=== PATIENT | male | born 1965 | race African-American/Black ===

== ENCOUNTER 2021-06-10 08:26 | Emergency (ER) | payer OTHER ==
[~2021-06-10] VITALS: Ht 208.3 cm; Wt 114.0 kg
[2021-06-10] MEDS ORDERED: LOSARTAN POTASSIUM 25 MG TABLET PO ONE (10:45)
[2021-06-10] MEDS ORDERED: IBUP-2029 MT (11:49)
[2021-06-10] MEDS ORDERED: SKEL800 MT (11:49)
[2021-06-10] MEDS ORDERED: AMLODIPINE 5MG TABLET PO ONE (12:00)
[2021-06-10 13:06] VITALS: BP 190/106
== END 2021-06-10 13:23 | disposition home or self-care (01) ==
LOC: ER 08:26
DX: M54.50 Low back pain, unspecified (principal); R51.9 Headache, unspecified; Z98.890 Other specified postprocedural states; V49.9XXA Car occupant (driver) (passenger) injured in unspecified traffic accident, initial encounter; Y93.89 Activity, other specified; Y92.89 Other specified places as the place of occurrence of the external cause; Y99.8 Other external cause status
CPT/HCPCS: 72100; 73610; 99284

== ENCOUNTER 2022-06-11 18:08 | Emergency (ER) | payer OTHER ==
[~2022-06-11] VITALS: Ht 182.9 cm; Wt 100.0 kg
[~2022-06-11 18:08] MED LIST: IBUP-2029 MT; SKEL800 MT
[2022-06-11] MEDS ORDERED: AMLODIPINE 5MG TABLET PO ONE (21:15)
[2022-06-11] MEDS ORDERED: AMLO5TAB88 MT (21:30)
[2022-06-11 21:51] VITALS: BP 218/126
== END 2022-06-11 21:51 | disposition home or self-care (01) ==
LOC: ER 18:08
DX: I10 Essential (primary) hypertension (principal); Z98.890 Other specified postprocedural states
CPT/HCPCS: 99283